=== PATIENT | male | born 1965 | race Caucasian/White ===

== ENCOUNTER 2016-08-05 23:44 | Emergency (ER) | payer MEDICARE, MEDICAID ==
[~2016-08-05] VITALS: Ht 185.4 cm; Wt 79.4 kg
[~2016-08-05 23:44] MED LIST: ACIT10CA3 PO; CALC0.5C2 PO; DOCU250C PO; LANT10002 PO; METO25TA6 PO; MIDO2.5T BC; MORP10CA11 PO; ONDA4TAB5 PO; VENL37.587 PO; [UNRECOGNIZED DRUG - OTHER]
[2016-08-05 23:45] VITALS: BP_SYST 138
[2016-08-06] MEDS ORDERED: LEVO50TA77 PO (00:25)
[2016-08-06] MEDS ORDERED: GABA-529 PO (00:26)
[2016-08-06] MEDS ORDERED: CALC667T5 PO (00:28)
[2016-08-06] MEDS ORDERED: LOPE2CAP PO (00:29)
[2016-08-06 00:30] LABS: BASOPHILS % (AUTO) 0.7 % (0.0-2.0); EOSINOPHILS # (AUTO) 0.1 K/uL (0.0-0.4); EOSINOPHILS % (AUTO) 2.4 % (0.0-4.0); HEMATOCRIT 38.3 % (36-54); HEMOGLOBIN 12.3 g/dL (14.0-18.0); LYMPHOCYTES # (AUTO) 1.1 K/uL (1.0-5.5); MEAN CORPUSCULAR HEMOGLOBIN 29 pg (27-31); MEAN CORPUSCULAR HGB CONC 32 % (32-36); MEAN CORPUSCULAR VOLUME 90 fL (79.0-98.0); MONOCYTES # (AUTO) 0.4 K/uL (0.0-1.0); MONOCYTES % (AUTO) 7.3 % (1.7-9.3); NEUTROPHILS # (AUTO) 3.7 K/uL (1.8-7.7); NEUTROPHILS % (AUTO) 68.6 % (40.0-70.0); PLATELET COUNT (AUTO) 197 K/uL (130-430); RED BLOOD CELL COUNT(AUTO) 4.26 MIL/uL (4.2-6.2); RED CELL DISTRIBUTION WIDTH 15.1 % (9.0-15.0); WHITE BLOOD COUNT (AUTO) 5.3 K/uL (4.8-10.8)
[2016-08-06] MEDS ORDERED: VANCOMYCIN HCL 1,000 MG in NS 250 ML IV ONE (00:30)
[2016-08-06] MEDS ORDERED: PIPERACILLIN/TAZO 3.375 GM in NS 50 ML IV ONE (00:30)
[2016-08-06] MEDS ORDERED: ACET-2165 PO (00:30)
[2016-08-06 00:35] LABS: BLOOD GAS PH 7.481 (7.350-7.450)
[2016-08-06 00:36] LABS: CALCIUM 8.6 mg/dL (8.4-11.0); CHLORIDE 101 mmol/L (98-107); CREATININE 4.99 mg/dL (0.55-1.30); GLUCOSE 129 mg/dL (70-99); POTASSIUM 3.5 mmol/L (3.5-5.1); SODIUM SERUM 134 mmol/L (136-145); UREA NITROGEN, BLOOD 24 mg/dL (8-21)
[2016-08-06 00:36] LABS: ABG TOTAL HEMOGLOBIN 12.6 G/dL (12.0-18.0); BLOOD GAS BASE EXCESS 7.3 mmol/L (-3.0-3.0); BLOOD GAS COHb% 1.3 % (0.5-1.5); BLOOD GAS HHB 13.2 % (0.0-6.0); BLOOD O2Hb% 85.3 % (94.0-97.0)
[2016-08-06 00:39] LABS: GFR AFRICAN AMERICAN 16 mL/min (>90)
[2016-08-06 00:40] LABS: ANION GAP < 3 (5-15)
[2016-08-06] MEDS ORDERED: PIPERACILLIN/TAZOBACTAM 3.375 GM/VIAL (ZOSYN) IV ONE (00:54)
[2016-08-06] MEDS ORDERED: VANCOMYCIN HCL 1000 MG/VIAL IV ONE (00:54)
[2016-08-06 01:03] LABS: ALANINE AMINOTRANSFERASE 8 U/L (12-78); ALBUMIN 3.1 g/dL (3.4-4.8); ASPARTATE AMINOTRANSFERASE 16 U/L (10-37); THYROID STIMULATING HORMONE 7.56 uIu/mL (0.34-4.82); TOTAL BILIRUBIN 0.8 mg/dL (0.0-1.0); TOTAL PROTEIN, SERUM 7.5 g/dL (6.4-8.3)
[2016-08-06 05:48] VITALS: BP_SYST 142
== END 2016-08-06 05:48 | disposition short-term general hospital (02) ==
LOC: SED 23:44
DX: J18.1 Lobar pneumonia, unspecified organism (principal); I10 Essential (primary) hypertension; E11.29 Type 2 diabetes mellitus with other diabetic kidney complication; N28.9 Disorder of kidney and ureter, unspecified
CPT/HCPCS: 36415; 36600; 71010; 80053; 82803; 82962; 83605; 83880; 84443; 84484; 85025; 87040; 93005; 96365; 96367; 99285; J2543; J3370; J7050

== ENCOUNTER 2016-12-24 09:02 | Emergency (ER) | payer MEDICARE, OTHER ==
[~2016-12-24] VITALS: Ht 182.9 cm; Wt 79.4 kg
[~2016-12-24 09:02] MED LIST changes: +ACET-2165 PO; +CALC667T5 PO; +GABA-529 PO; -LANT10002 PO; +LEVO50TA77 PO; +LOPE2CAP PO; -MIDO2.5T BC; -MORP10CA11 PO; -ONDA4TAB5 PO; -[UNRECOGNIZED DRUG - OTHER]
--- NOTE | 2016-12-24 09:02 | NUR ---
Pt brought in by ACLS to bed 3, report was given to Karely Banerjee
[2016-12-24 09:09] VITALS: BP_SYST 166
--- NOTE | 2016-12-24 09:09 | NUR ---
Pt brought by ambulance with CC of can't stay awake, lethargic. able to answer simple question and back to sleep.vital sign elevated. hx of htn, hemodialysis scheduled M,W,F. AV shunt at left upper arm, bruit and thrill strong, right upper chest pacemaker. sin elbow and left posterior lower leg scabs noted.right big toe swelling. sin LE edematous. informed about the POC. spouse at bedside.
--- NOTE | 2016-12-24 09:58 | NUR ---
ER at bedside examining patient.
[2016-12-24 10:18] LABS: BASOPHILS # (AUTO) 0.1 K/uL (0.0-0.2); EOSINOPHILS # (AUTO) 0.2 K/uL (0.0-0.4); EOSINOPHILS % (AUTO) 3.1 % (0.0-4.0); HEMOGLOBIN 11.2 g/dL (14.0-18.0); LYMPHOCYTES # (AUTO) 1.5 K/uL (1.0-5.5); LYMPHOCYTES % (AUTO) 21.1 % (20.5-51.5); MEAN CORPUSCULAR HEMOGLOBIN 28 pg (27-31); MEAN CORPUSCULAR HGB CONC 33 % (32-36); MEAN CORPUSCULAR VOLUME 86 fL (79.0-98.0); MONOCYTES # (AUTO) 0.4 K/uL (0.0-1.0); MONOCYTES % (AUTO) 5.2 % (1.7-9.3); NEUTROPHILS # (AUTO) 4.9 K/uL (1.8-7.7); NEUTROPHILS % (AUTO) 69.6 % (40.0-70.0); PLATELET COUNT (AUTO) 276 K/uL (130-430); RED BLOOD CELL COUNT(AUTO) 3.97 MIL/uL (4.2-6.2); RED CELL DISTRIBUTION WIDTH 14.5 % (9.0-15.0); WHITE BLOOD COUNT (AUTO) 7.1 K/uL (4.8-10.8)
--- NOTE | 2016-12-24 10:33 | NUR ---
MD TAYLOR AT BEDSIDE TALKING TO PT SPOUSE AT BEDSIDE.
[2016-12-24 11:39] LABS: INR 1.3 (0.80-1.20); PROTHROMBIN TIME 12.8 SECS (9.5-12.5)
[2016-12-24 11:40] LABS: CALCIUM 9.1 mg/dL (8.4-11.0); CREATININE 7.03 mg/dL (0.55-1.30); POTASSIUM 4.1 mmol/L (3.5-5.1)
[2016-12-24] MEDS ORDERED: ENALAPRILAT DIHYDRATE 1.25 MG/ML VIAL IVP ONE (11:45)
[2016-12-24 11:49] LABS: ALBUMIN 2.8 g/dL (3.4-4.8); TOTAL BILIRUBIN 0.6 mg/dL (0.0-1.0)
[2016-12-24] MEDS ORDERED: KETOROLAC TROMETHAMINE 30 MG VIAL IVP ONE (12:00)
[2016-12-24] MEDS ORDERED: ACETAMINOPHEN 325 MG TABLET ONE (12:16)
[2016-12-24] MEDS ORDERED: cefTRIAXone 1 GM IVPB PREMIX 50 ML IV ONE (13:15)
--- NOTE | 2016-12-24 14:17 | NUR ---
patient will be transfer to [facility] under care of Dr Lisa Aviles, report given to Sylvester charge nurse. phone [phone],patient and spouse aware.p/u time 1500.
[2016-12-24 14:50] VITALS: BP_SYST 129
--- NOTE | 2016-12-24 14:50 | NUR ---
Transfer notes: Patient and spouse informed by ER MD discussed with patient the results and treatment provided. Patient in stable conditio for transfer to [facility].Opportunity for questions provided and answered.
== END 2016-12-24 14:17 | disposition short-term general hospital (02) ==
LOC: SED 09:02
DX: R40.4 Transient alteration of awareness (principal); R53.1 Weakness; I10 Essential (primary) hypertension; E11.9 Type 2 diabetes mellitus without complications; Z79.4 Long term (current) use of insulin; Z96.89 Presence of other specified functional implants; Z99.2 Dependence on renal dialysis
CPT/HCPCS: 36415; 70450; 71010; 80053; 82140; 82962; 83605; 83880; 84484; 85025; 85610; 85730; 87040; 96365; 96375; 99285; J0696; J1885

== ENCOUNTER 2019-05-01 21:35 | Emergency (ER) | payer MEDICARE, OTHER ==
[~2019-05-01] VITALS: Ht 170.2 cm; Wt 72.6 kg
[~2019-05-01 21:35] MED LIST changes: +CALC0.5C11 PO; -CALC0.5C2 PO; -CALC667T5 PO; +CALC667T6 PO; -DOCU250C PO; +DOCU250C14 PO; -LEVO50TA77 PO; +SYN50 PO
[2019-05-01 21:39] VITALS: BP_SYST 140
[2019-05-01] MEDS ORDERED: DEXTROSE 50% JECT 50 ML DISP.SYRIN IVP ONE (21:45)
[2019-05-01] MEDS ORDERED: GLUCAGON,HUMAN RECOMBINANT 1 MG VIAL IM ONE (21:45)
[2019-05-01] MEDS ORDERED: ONDANSETRON 4 MG ODT TAB PO ONE (21:45)
[2019-05-01 22:09] LABS: BASOPHILS # (AUTO) 0.1 K/uL (0.0-0.2); EOSINOPHILS # (AUTO) 0.3 K/uL (0.0-0.4); EOSINOPHILS % (AUTO) 4.9 % (0.0-4.0); HEMATOCRIT 39.8 % (36-54); HEMOGLOBIN 12.7 g/dL (14.0-18.0); LYMPHOCYTES # (AUTO) 1.2 K/uL (1.0-5.5); LYMPHOCYTES % (AUTO) 22.2 % (20.5-51.5); MEAN CORPUSCULAR HEMOGLOBIN 29 pg (27-31); MEAN CORPUSCULAR HGB CONC 32 % (32-36); MEAN CORPUSCULAR VOLUME 91 fL (79.0-98.0); MONOCYTES # (AUTO) 0.7 K/uL (0.0-1.0); MONOCYTES % (AUTO) 12.1 % (1.7-9.3); NEUTROPHILS # (AUTO) 3.3 K/uL (1.8-7.7); NEUTROPHILS % (AUTO) 59.8 % (40.0-70.0); PLATELET COUNT (AUTO) 159 K/uL (130-430); RED BLOOD CELL COUNT(AUTO) 4.38 MIL/uL (4.2-6.2); WHITE BLOOD COUNT (AUTO) 5.6 K/uL (4.8-10.8)
[2019-05-01 22:20] LABS: ANION GAP 6 (5-15); CALCIUM 8.8 mg/dL (8.4-11.0); CHLORIDE 96 mmol/L (98-107); CREATININE 6.65 mg/dL (0.55-1.30); GLUCOSE 81 mg/dL (70-99); PROTHROMBIN TIME 10.4 SECS (9.5-12.5); SODIUM SERUM 136 mmol/L (136-145); UREA NITROGEN, BLOOD 54 mg/dL (8-21)
[2019-05-01 22:21] LABS: GFR AFRICAN AMERICAN 11 mL/min (>90)
[2019-05-01 22:37] LABS: ALANINE AMINOTRANSFERASE 15 U/L (12-78); ALBUMIN 3.5 g/dL (3.4-4.8); ASPARTATE AMINOTRANSFERASE 20 U/L (10-37); FREE T4 (FREE THYROXINE) 1.2 ng/dl (0.8-1.5); THYROID STIMULATING HORMONE 3.74 uIu/mL (0.36-3.74); TOTAL BILIRUBIN 0.6 mg/dL (0.0-1.0)
[2019-05-01 22:45] LABS: ACETAMINOPHEN < 1 ug/mL (1-30); ALCOHOL, BLOOD < 3 mg/dL (<10)
[2019-05-02 04:03] VITALS: BP_SYST 122
== END 2019-05-02 04:40 | disposition left against medical advice (07) ==
LOC: SED 21:35
DX: E11.65 Type 2 diabetes mellitus with hyperglycemia (principal); R55 Syncope and collapse; I45.81 Long QT syndrome; I10 Essential (primary) hypertension; E11.29 Type 2 diabetes mellitus with other diabetic kidney complication; N28.9 Disorder of kidney and ureter, unspecified; E07.9 Disorder of thyroid, unspecified; Z95.0 Presence of cardiac pacemaker; Z79.899 Other long term (current) drug therapy
CPT/HCPCS: 36415; 70450; 71045; 80053; 82962; 84439; 84443; 84484; 85025; 85610; 85730; 96374; 99285; G0480; G0481; G0482; Q0162; 93005